=== PATIENT | female | born 1955 | race Caucasian/White ===

== ENCOUNTER 2017-02-16 08:27 | Day surgery (SDC) | payer BC ==
[2017-02-16] MEDS ORDERED: LIDOCAINE 2% MDV (20MG/ML) 20ML VIAL IV ONE (08:28)
[2017-02-16] MEDS ORDERED: PROPOFOL 10 MG/ML VIAL IV ONE (08:28)
--- NOTE | 2017-02-17 09:40 | Operative Note ---
Dictated by Dr. Gil Maxwell DATE OF SURGERY: 02/16/2017 OPERATION: Diagnostic COLONOSCOPY with no intervention. PERFORMING PHYSICIAN: Pako Mehta DO ASSISTING PHYSICIAN: Dr. Gil Maxwell INDICATION: The patient was seen in the [facility] [place] office with complaints of rectal bleeding. The patient was also noted to have a screening colonoscopy done about 10 years ago as well with no significant adenomas at that time. Due to the patient's rectal bleeding and need for repeat colonoscopy, diagnostic colonoscopy was set up here at [facility]. ANESTHESIA: Given per the [facility] anesthesia team. Please see medication reconciliation for further details. PROCEDURE: Risks and benefits of the procedure were discussed in detail with the patient, and the patient was given the opportunity to ask questions. Consent was signed for both the procedure and anesthesia. The patient was brought to the endoscopy room and laid in the left lateral position and then was appropriately placed under moderate sedation under the care of the anesthesia team at [facility] with propofol. Once it was confirmed that the patient was sedated, a 180 colonoscope was then lubricated and a rectal examination was done. Found no abnormalities, no external abnormalities. The scope was then placed into the rectum. A thorough examination was made and water and stool cleaned out. The scope was then progressed through the colon with some need of external pressure but was able to advance into the cecum and the terminal ileum successfully. A thorough look was taken of the cecum with photo documentation maintained of the appendiceal orifice and the terminal ileum. Once a double look was done, a thorough examination was made with the colonoscope withdrawn and water and excrement suctioned to allow better visualization. Withdrawal time did exceed 6 minutes and only noted findings include diverticulosis within the sigmoid area. Retroflexion was done in the rectal region. No internal hemorrhoids were seen. There was an extensive amount of fluid and stool in the rectum making it somewhat difficult to see but with suction, a better examination was made again with no noted internal hemorrhoids noted or signs of bleeding. The scope was then removed. Examination was made again of the anal orifice on removal. There was a little area of excoriation around the rectum but no signs of bleeding or signs of being the cause of bleeding. The patient tolerated the procedure well, and no complications were noted. IMPRESSION: Overall normal colonoscopy with no signs of bleeding with diverticulosis only noted. RECOMMENDATIONS: Repeat colonoscopy in 10 years. Attending physician was present for procedure with recommendations made. As always, thank you for allowing me to participate in the care of your patient. CC: Shannon VINES
== END 2017-02-16 10:55 | disposition home or self-care (01) ==
LOC: HOP 08:27
PROVIDERS: ATTEND Internal Medicine Gastroenterology
DX: K62.5 Hemorrhage of anus and rectum (principal); K57.30 Diverticulosis of large intestine without perforation or abscess without bleeding; I10 Essential (primary) hypertension; F32.9 Major depressive disorder, single episode, unspecified
CPT/HCPCS: 00810; G0121

== ENCOUNTER 2017-08-03 10:04 | Emergency (ER) | payer BC ==
--- NOTE | 2017-08-03 10:29 | Emergency Department Record ---
History of Present Illness - General Chief complaint: Nausea, Vomiting, Diarrhea Stated complaint: DIARRHEA Time Seen by Provider: 08/03/17 10:27 Source: Patient Mode of Arrival: Ambulatory Limitations: No limitations - History of Present Illness Initial comments: The patient is here due to a 4 day hx of intermittent sharp crampy lower AP with loose stools. She denies any vomiting or fever but has been mildly nauseated off and on. She denies any hx of similar issues and has had no recent travel or oral Abx use. 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 There has been no blood in the stool and she is having an episode of diarrhea almost hourly during the day. The patient also did just have a normal colonoscopy 3 months ago. MD complaint: Diarrhea Onset/Timin -: Days(s) Location: LLQ, RLQ Severity: Mild Quality: Aching, Sharp Consistency: Intermittent Improves with: None Worsens with: Eating - Related Data Home Medications Medication Instructions Recorded Confirmed Last Taken Butalb/Acetaminophen/Caffeine 1 each PO ASDIR 08/03/17 08/03/17 Unknown [Fioricet] Tramadol HCl [Ultram] 50 mg PO ASDIR 08/03/17 08/03/17 Unknown Previous Rx's Medication Instructions Recorded Ciprofloxacin HCl [Cipro] 500 mg PO Q12HR #14 tablet 08/03/17 Metronidazole [Flagyl] 500 mg PO TID #21 tablet 08/03/17 Allergies Allergy/AdvReac Type Severity Reaction Status Date / Time No Known Drug Allergies Allergy Verified 08/03/17 10:25 Travel Screening - Travel/Exposure Within Last 30 Days Have you traveled within the last 30 days?: No Review of Systems Constitutional: Denies: Chills, Fever Respiratory: Denies: Dyspnea Cardiovascular: Denies: Chest pain Gastrointestinal: Reports: Diarrhea, Nausea. Denies: Vomiting Genitourinary: Denies: Dysuria Past Medical History - SOCIAL HISTORY Smoking Status: Never smoker Alcohol Use: None Drug Use: None - RESPIRATORY Hx Respiratory Disorders: No - CARDIOVASCULAR Hx Cardio Disorders: Yes Hx Hypertension: Yes - NEURO Hx Neuro Disorders: Yes Hx of Migraines: Yes - GI Hx GI Disorders: Yes Hx Reflux: Yes Hx Rectal Bleeding: Yes - Hx Genitourinary Disorders: No - ENDOCRINE Hx Endocrine Disorders: No - MUSCULOSKELETAL Hx Musculoskeletal Disorders: Yes Hx Arthritis: Yes - PSYCH Hx Psych Problems: Yes Hx Depression: Yes - HEMATOLOGY/ONCOLOGY Hx Hematology/Oncology Disorders: No Family Medical History Any Significant Family History?: Yes Family Hx Comment (NOT TO BE USED IN PLACE OF ITEMS BELOW): thyroid Hx Cancer: Father Hx Diabetes: Mother, Brother/Sister Hx HTN: Father, Mother Hx Resp Disorders: Grandparents Hx Stroke: Grandparents Physical Exam - General General Appearance: Alert, Oriented x3, Cooperative, No acute distress - Head Head exam: Atraumatic, Normocephalic, Normal inspection - Eye Eye exam: Normal appearance, PERRL - Neck Neck exam: Normal inspection, Full ROM. negative: Tenderness - Respiratory Respiratory exam: Normal lung sounds bilaterally. negative: Respiratory distress - Cardiovascular Cardiovascular Exam: Regular rate, Normal rhythm, Normal heart sounds - GI/Abdominal GI/Abdominal exam: Soft, Tenderness (There is mild LLQ and RLQ tenderness.). negative: Guarding, Organomegaly, Pulsatile mass, Rebound, Rigid - Extremities Extremities exam: Normal inspection, Full ROM, Normal capillary refill. negative: Tenderness - Neurological Neurological exam: Alert, Normal gait. negative: Abnormal gait, Motor sensory deficit Course Vital Signs 08/03/17 10:21 Temperature 98.2 F Pulse Rate 82 Respiratory 16 Rate Blood Pressure 132/85 Pulse Ox 98 - Reevaluation(s) Reevaluation #1: The patient is doing very well at this time. She denies any significant pain or discomfort. I did discuss the lab and CT results and the need for F/U with her PCP later this week. She is to take the Cipro and Flagyl and return to the ER for any worsening symptoms. 08/03/17 12:41 Medical Decision Making - Data Complexity MDM Data: Labs Ordered and/or Reviewed, X-Ray Ordered and/or Reviewed - Lab Data Result diagrams: 08/03/17 10:45 08/03/17 10:45 - Radiology Data Radiology results: Report reviewed (CT: Mild sigmoid Diverticulitis and mild L colon possible colitis.) Disposition Disposition: Discharge Clinical Impression: Diverticulitis large intestine Qualifiers: Diverticulitis bleeding: without bleeding Diverticulitis complication: unspecified complication status Qualified Code(s): K57.32 - Diverticulitis of large intestine without perforation or abscess without bleeding Disposition: Home, Self-Care Condition: (2) Stable Instructions: Diverticulitis (ED) Additional Instructions: Please take the Zortman for pain and then the Motrin. Please continue the Cipro and Flagyl and see your family doctor later this week for recheck. Return to the ER for any worsening pain, fever, or vomiting. Prescriptions: Ciprofloxacin HCl [Cipro] 500 mg PO Q12HR #14 tablet Metronidazole [Flagyl] 500 mg PO TID #21 tablet Forms: Patient Portal Access Time of Disposition: 12:44 Quality - Quality Measures Quality Measures: N/A - Blood Pressure Screening View Details: Yes Does Patient Have Any of the Following: No Blood Pressure Classification: Normal BP Reading Systolic Measurement: 114 Diastolic Measurement: 74 Screening for High Blood Pressure: < Normal BP, F/U Not Required > [G8783]
[2017-08-03] MEDS ORDERED: ONDANSETRON HCL IV 4 MG/2 ML VIAL IV ONE (10:43)
[2017-08-03] MEDS ORDERED: 0.9 % SODIUM CHLORIDE 1,000 ML BAG IV ONE (10:43)
[2017-08-03 10:57] LABS: BASO % 0.5 % (0-6); EOS % 2.1 % (0-6); GRAN % 61.9 % (47-80); HEMATOCRIT 36.6 % (35.0-47.0); HEMOGLOBIN 12.3 gm/dl (11.6-16.0); LYMPH % 29.5 % (16-45); MEAN CELL VOLUME 89.7 fl (81-97); MEAN CORPUSCULAR HEMOGLOBIN 30.1 pg (27-33); MEAN CORPUSCULAR HGB CONC 33.6 g/dl (32-36); MEAN PLATELET VOLUME 8.7 fl (7.4-10.4); PLATELET COUNT 257 K/uL (130-400); RED BLOOD COUNT 4.08 M/uL (3.80-5.40); RED CELL DISTRIBUTION WIDTH 12.7 % (11.5-14.5); WHITE BLOOD COUNT W/O DIFF 7.5 K/uL (4.2-12.2)
[2017-08-03 11:07] LABS: URINE APPEARANCE CLEAR; URINE BILIRUBIN NEGATIVE (NEGATIVE); URINE BLOOD TRACE-I (NEGATIVE); URINE COLOR YELLOW; URINE GLUCOSE (UA) NEGATIVE (NEGATIVE); URINE KETONE NEGATIVE (NEGATIVE); URINE LEUKOCYTE ESTERASE SMALL (NEGATIVE); URINE NITRITE NEGATIVE (NEGATIVE); URINE PROTEIN NEGATIVE (NEGATIVE); URINE UROBILINOGEN 0.2 E.U./dL (0.20 - 1.00)
[2017-08-03 11:08] LABS: URINE BACTERIA FEW; URINE EPITHELIAL CELLS 0 - 2 (FEW)
[2017-08-03 11:09] LABS: BLOOD UREA NITROGEN 10 mg/dL (8-23); CREATININE 0.6 mg/dL (0.5-0.9); EST GLOMERULAR FILTRATION RATE > 60 mL/min
[2017-08-03 11:10] LABS: TOTAL PROTEIN 7.1 g/dL (6.6-8.7)
[2017-08-03 11:12] LABS: GLUCOSE,RANDOM 117 mg/dL (74-109)
[2017-08-03 11:14] LABS: ALBUMIN 4.2 g/dL (4.0-5.0); ALKALINE PHOSPHATASE 98 U/L (35-104); ALT/SGPT 13 U/L (<33); AST/SGOT 18 U/L (10.0-35.0)
[2017-08-03 11:15] LABS: LIPASE 41 U/L (13-60)
[2017-08-03 11:16] LABS: BILIRUBIN,DIRECT < 0.2 mg/dL (0-0.3)
[2017-08-03] MEDS ORDERED: KETOROLAC 30 MG/ML VIAL IVP ONE (11:37)
[2017-08-03] MEDS ORDERED: CIPROFLOXACIN LACTATE/D5W 400 MG/200 ML BAG IVPB ONE (11:39)
[2017-08-03] MEDS ORDERED: METRONIDAZOLE 250 MG TABLET PO ONE (11:46)
[2017-08-03] MEDS ORDERED: HYDROCODONE/APAP 5/325MG TABLET PO ONE (12:44)
--- NOTE | 2017-08-04 10:25 | CT SCAN REPORT ---
EXAM: EMERGENCY CT OF THE ABDOMEN AND PELVIS HISTORY: LOWER ABDOMINAL PAIN FOR FIVE DAYS. CHOLECYSTECTOMY, APPENDECTOMY, HYSTERECTOMY. TECHNIQUE: Axial CT scan of the abdomen and pelvis was performed without oral or IV contrast at the referring physician's request. Comparison: None. FINDINGS: The gallbladder, appendix and uterus are all not identified consistent with surgical history. No intrarenal calculi seen in either kidney. No hydroureter is seen on either side. As such the ureters are somewhat difficult to follow in their entire course throughout the retroperitoneum and pelvis, but no definite ureteral calculus seen on either side and no bladder calculus evident. There is a single small low attenuation mass posteriorly in the right lobe of the liver measuring about 1.4 cm in diameter with a noncontrast CT density of 12. This is incompletely evaluated without IV contrast, but is likely just a small hepatic cyst. This could be confirmed with a follow-up MRI of the abdomen if felt clinically warranted. Evaluation of the bowel and viscera is quite limited without oral or IV contrast, but given this limitation, no additional hepatic mass seen and no definite splenic, adrenal, pancreatic or renal mass identified. There is probably an approximately 3.5 cm duodenal diverticulum arising from the duodenal sweep extending towards the head of the pancreas. There is mild diverticulosis in the colon, however, in addition, there is hazy increased density in the region of the mid to upper sigmoid colon probably representing mild changes of acute sigmoid diverticulitis. Elsewhere much of the left side of the colon has a slightly thick walled appearance as well. This may just be related to incomplete distention although a more diffuse mild colitis in the left side of the colon including the sigmoid colon may be present rather than simply a localized mild sigmoid diverticulitis. No free intraperitoneal air or free intraperitoneal fluid identified. Prominent facet joint arthropathy in the lower lumbar spine and degenerative disk disease at the lumbosacral interspace. Minor scoliosis. IMPRESSION: 1. POSTOP CHOLECYSTECTOMY, APPENDECTOMY, AND HYSTERECTOMY. 2. PROMINENT DUODENAL DIVERTICULUM ABOUT 3.5 CM IN SIZE. 3. PROBABLE 1.4 CM HEPATIC CYST. 4. FINDINGS LIKELY REPRESENTING MILD CHANGES OF ACUTE SIGMOID DIVERTICULITIS ALTHOUGH OTHER FORMS OF MILD COLITIS INVOLVING THE LEFT SIDE OF THE COLON COULD NOT ABSOLUTELY BE EXCLUDED. 5. DEGENERATIVE CHANGES LOWER LUMBAR SPINE. JOB NUMBER: [id number] [facility]
== END 2017-08-03 12:55 | disposition home or self-care (01) ==
LOC: ER 10:04
DX: K57.32 Diverticulitis of large intestine without perforation or abscess without bleeding (principal); R19.7 Diarrhea, unspecified; R11.0 Nausea; I10 Essential (primary) hypertension
CPT/HCPCS: 99284 ×2; 96365; 96375; 83690; 85025; 80076; 80048; 81001; 89055; 87493; 74176; J0744; J1885; J2405; J7030